=== PATIENT | male | born 1970 | race African-American/Black ===

== ENCOUNTER 2023-11-07 19:55 | Emergency (ER) | payer OTHER ==
[~2023-11-07] VITALS: Ht 182.9 cm; Wt 85.0 kg
[2023-11-07 20:02] VITALS: O2SAT 100
[2023-11-07] MEDS ORDERED: IBUP-2029 MT (20:25)
[2023-11-07] MEDS: IBUPROFEN 600MG TABLET PO ONE (21:09)
[2023-11-07 21:10] VITALS: BP 144/78; PULSE 89; RESP 20; TEMP 98.4
== END 2023-11-07 21:11 | disposition home or self-care (01) ==
LOC: ER 19:55
DX: S09.90XA Unspecified injury of head, initial encounter (principal); V49.49XA Driver injured in collision with other motor vehicles in traffic accident, initial encounter; Y93.89 Activity, other specified; Y92.89 Other specified places as the place of occurrence of the external cause; Y99.8 Other external cause status
CPT/HCPCS: 99283